=== PATIENT | male | born 1995 | race Two or more races ===

== ENCOUNTER 2018-11-15 11:15 | Day surgery (SDC) | payer MEDICAID, OTHER, SELFPAY ==
[~2018-11-15] VITALS: Ht 167.6 cm; Wt 71.8 kg
[~2018-11-15 11:15] MED LIST: DEXAMETHASONE 4 MG/ML, 1ML ONE; GLYCOPYRROLATE 0.2MG/1ML, 5ML ONE; NEOSTIGMINE 1 MG/ML, 10ML ONE; PROPOFOL 10 MG/ML, 20ML ONE; ROCURONIUM 10MG/ML,5ML ONE; SUCCINYLCHOLINE 20 MG/ML, 10ML ONE
[2018-11-15] MEDS ORDERED: SODIUM CHLORIDE FLUSH 10ML SYR IVF ONE (11:30)
[2018-11-15 11:58] LABS: BASOPHILS # (AUTO) 0.16 x10^3/uL (0-0.1); BASOPHILS % (AUTO) 1 % (0-1); EOSINOPHILS # (AUTO) 0.03 x10^3/uL (0-0.4); EOSINOPHILS % (AUTO) 0 % (1-7); LYMPHOCYTES # (AUTO) 1.93 x10^3/uL (1-3.4); LYMPHOCYTES % (AUTO) 13 % (22-44); MD NO; MEAN CORPUSCULAR HEMOGLOBIN 29.7 pg (27.5-34.5); MEAN CORPUSCULAR HGB CONC 34.3 g/dL (33.2-36.2); MEAN CORPUSCULAR VOLUME 86.6 fL (81-97); MEAN PLATELET VOLUME 7.2 fL (7.4-10.4); MONOCYTES # (AUTO) 0.69 x10^3/uL (0.2-0.8); MONOCYTES % (AUTO) 5 % (2-9); NEUTROPHILS # (AUTO) 11.86 x10^3/uL (1.8-6.8); NEUTROPHILS % (AUTO) 81 % (42-75); PLATELET COUNT 288 x10^3/uL (130-400); RED BLOOD COUNT 5.76 x10^6/uL (4.38-5.82); RED CELL DISTRIBUTION WIDTH 12.6 % (9.4-14.8)
[2018-11-15 12:05] LABS: ALANINE AMINOTRANSFERASE 45 U/L (12-78); ALBUMIN 4.2 g/dL (3.4-5.0); ANION GAP 5 mmol/L (5-15); CALCIUM 9.5 mg/dL (8.5-10.1); CHLORIDE 106 mmol/L (98-107); CREATININE 0.94 mg/dL (0.7-1.3)
[2018-11-15 12:07] LABS: ALKALINE PHOSPHATASE 71 U/L (45-117); BILIRUBIN,TOTAL 0.8 mg/dL (0.2-1.0); TOTAL PROTEIN 8.2 g/dL (6.4-8.2)
[2018-11-15 12:56] LABS: MICROSCOPIC NOT IND
[2018-11-15 13:02] LABS: CULTURE INDICATED? NO
--- NOTE | 2018-11-15 13:07 | NUR ---
PT AMBULATED TO ROOM WITH STEADY GAIT. REPORTS PERIUMBILICAL PAIN THAT STARTED TODAY WITH VOMITING X 2. PT IS ALERT, ORIENTED, WITH NAD. PT IS CONNECTED T THE MONITOR. CALL LIGHT WITHIN REACH.
--- NOTE | 2018-11-15 13:17 | NUR ---
PT TAKEN TO CT.
[2018-11-15] MEDS ORDERED: OMNIPAQUE 350 MG/ML, 100ML BOTTLE ONE (13:28)
[2018-11-15] MEDS ORDERED: SODIUM CHLORIDE 0.9% 1,000ML IVBOLUS ONE (14:30)
[2018-11-15] MEDS ORDERED: CEFOTETAN PMX 1GM/50ML 50 ML IVPB ONE (14:30)
[2018-11-15] MEDS ORDERED: CEFOTETAN PMX 1GM/50ML 50 ML ONE (14:33)
[2018-11-15] MEDS ORDERED: MIDAZOLAM 1 MG/ML, 2ML ONE (14:36)
[2018-11-15] MEDS ORDERED: FENTANYL PF 250 MCG/5ML ONE (14:36)
--- NOTE | 2018-11-15 14:38 | NUR ---
REPORT GIVEN TO SARAH LANZA IN PRE OP.
[2018-11-15] MEDS ORDERED: BUPIVACAINE/PF-EPI 0.5% 1:200K ONE (14:46)
--- NOTE | 2018-11-15 14:51 | NUR ---
PT TAKEN TO SURGERY.
[2018-11-15] MEDS ORDERED: LORazepam 2 MG/ML, 1ML IVPush PRN (16:00)
[2018-11-15] MEDS ORDERED: ONDANSETRON 2MG/ML, 2ML IV PRN (16:00)
[2018-11-15] MEDS ORDERED: ACETAMINOPHEN 325 MG TABLET PO PRN (16:00)
[2018-11-15] MEDS ORDERED: MEPERIDINE/PF 25MG/0.5ML IVPush PRN (16:00)
[2018-11-15] MEDS ORDERED: PROMETHAZINE 25 MG/ML, 1ML IV PRN (16:00)
[2018-11-15] MEDS ORDERED: ONDANSETRON ODT 8 MG PO PRN (16:00)
[2018-11-15] MEDS ORDERED: OXYcodone 5 MG/5 ML ORAL.SOL UDC ONE ×2 (16:51→17:18)
[2018-11-15] MEDS: OXYcodone 5 MG/5 ML ORAL.SOL UDC PO PRN ×2 (16:52→17:18)
[2018-11-15] MEDS ORDERED: FENTANYL PF 100 MCG/2ML ONE (16:59)
[2018-11-15] MEDS ORDERED: HYDROmorphone 1 MG/ML, 1ML ONE (16:59)
[2018-11-15] MEDS: FENTANYL PF 100 MCG/2ML IV PRN ×4 (17:03→17:35)
[2018-11-15] MEDS ORDERED: ACETAMINOPHEN 650 MG/20.3 ML UDC ONE (17:12)
[2018-11-15] MEDS: HYDROmorphone 2 MG/ML, 1ML IVPush PRN ×3 (17:27→17:41)
[2018-11-15] MEDS ORDERED: OXYcodone/APAP 5/325MG TABLET PO PRN ×2 (19:30)
[2018-11-15] MEDS ORDERED: ONDANSETRON 2MG/ML, 2ML IVPush PRN (19:30)
[2018-11-15] MEDS ORDERED: MORPHINE SULFATE 4 MG/ML, 1ML IVPush PRN (19:30)
[2018-11-15] MEDS ORDERED: LACTATED RINGERS 1,000 ML IV SCH (19:30)
[2018-11-15 20:18] VITALS: BP 115/66
[2018-11-15] MEDS ORDERED: SODIUM CHLORIDE FLUSH 10ML SYR IVF PRN (20:30)
== END 2018-11-15 22:00 | disposition left against medical advice (07) ==
LOC: EDSTATUS 11:58 → ED 13:48 → 4NOR 18:11 → ED 18:11 → SDC 18:19 → ED 20:24 → 4NOR 20:24 → UNDOADMIN 20:24 → 4NOR 20:24 → SDC 22:00 → UNDODISIN 22:05
PROVIDERS: ATTEND Emergency Medicine
DX: K35.80 Unspecified acute appendicitis (principal)
CPT/HCPCS: 36415; 44970; 74177; 80053; 81003; 83690; 85025; 88304; 99285; J0330; J1100; J1170; J2250; J2704; J2710; J3010; J3490; J7030; Q9967; G0378